=== PATIENT | female | born 1960 | race Caucasian/White ===

== ENCOUNTER 2017-12-29 09:14 | Day surgery (SDC) | payer MEDICARE ==
[2017-12-28 15:13] VITALS: BMI 30.4
[2017-12-29 12:09] VITALS: TEMP 98.4
[2017-12-29 12:11] VITALS: BP 95/43
--- NOTE | 2017-12-29 13:06 | RAD ---
LUMBAR SPINE MYELOGRAM INDICATIONS: Lumbar pain. Prior lumbar spine surgery. Lumbar radiculopathy. EXPOSURE DATA: 0.3 minutes intermittent fluoroscopy. 33 mGy per m2. PROCEDURE: After informed consent had been obtained, the patient was escorted to the interventional suite and pl aced on the procedural table. Body Component Engineer imaging was performed. The patient was placed into a prone posi tion. Skin on the low back was then prepped and draped in the standard sterile fashion and topical a nd regional soft tissue anesthesia was achieved with 1% lidocaine and sodium bicarbonate. Left L3-L 4 interlaminar approach was selected, and a 22 gauge needle was uneventfully advanced into the thecal sac with clear color CSF. Subsequently, 9 cc Isovue M-200 was instilled into the thecal sac under r eal time fluoroscopy. Appropriate opacification of thecal sac demonstrated with imaging stored for c onfirmation. The needle was then removed from the patient. The patient tolerated the procedure well and was then transferred to CT to undergo subsequent myelogram. Reference separate report for full details. IMPRESSION: Technically successful lumbar myelogram as detailed above. POS: [facility]
[2017-12-29] MEDS ORDERED: Iopamidol-M 200 41% 20 ML VIAL ONE (14:57)
--- NOTE | 2017-12-30 07:51 | CT ---
CT LUMBAR SPINE WITH CONTRAST: CT LUMBAR MYELOGRAM: CLINICAL HISTORY: Lumbar pain. Lumbar radiculopathy. Prior lumbar spine surgery. COMPARISON: 03/01/2013 FINDINGS: Multilevel posterior metallic fusion is present, spanning the L3 through the S1 segments, with bilate ral pedicle screws at each level, conjoined by bilateral vertical interconnecting rods. Intervertebr al disk space prostheses are present at L3-L4, L4-L5, and L5-S1. Prominent endplate degenerative scl erosis involves the L2 and L3 segments. No compression fracture. There is mild kyphosis centered at L2-L3. L5-S1: Prominent bilateral degenerative facet hypertrophy is present. There is osseous compromise o f the right subarticular zone with crowding of the traversing right S1 nerve root and moderate right neural foraminal stenosis. There is mild narrowing of the left neural foramen. L4-L5: Mild narrowing of the central canal on the basis of a broad-based osteophyte ridge. There is bilateral degenerative facet hypertrophy with mild bilateral neural foraminal narrowing. L3-L4: Broad-based osteophyte, along with bilateral facet hypertrophy and redundancy of ligamentum f lavum, more notable on the left present. There is evidence of a left hemilaminectomy with prominent right degenerative facet hypertrophy. Mild central canal narrowing is present, more notable on the l eft. There is mild left neural foraminal narrowing. No high grade right foraminal stenosis. L2-L3: There is moderate central canal stenosis on the basis of broad-based disk osteophyte, more pr onounced to the right. There is moderate narrowing of the right subarticular zone with crowding of t he traversing right L3 nerve root. Mild to moderate bilateral neural foraminal narrowing is present. L1-L2: There is moderate central canal stenosis due to broad-based disk osteophyte. Mild to moderat e bilateral neural foraminal stenosis is present. There is mild bilateral degenerative facet hypertr ophy. There is a mild dextroscoliosis centered at the L2-L3 level. Incidental note of prominent distention of the urinary bladder, incompletely visualized. Correlate c linically. There is vascular calcification. Nonspecific retrocrural lymph nodes are incompletely as sessed. IMPRESSION: Multilevel degenerative change of the lumbar spine, as outlined above. There is multilevel posterior metallic fusion without evidence of acute hardware complication. POS: [facility]
== END 2017-12-29 12:35 | disposition home or self-care (01) ==
LOC: RAD 09:14
PROVIDERS: ATTEND Family Medicine
PROC: B02BY0Z Computerized Tomography (CT Scan) of Spinal Cord using Other Contrast, Unenhanced and Enhanced (ICD-10-PCS; principal; 2017-12-29)
DX: M47.26 Other spondylosis with radiculopathy, lumbar region (principal); M48.061 Spinal stenosis, lumbar region without neurogenic claudication; G89.29 Other chronic pain; E11.9 Type 2 diabetes mellitus without complications; F17.200 Nicotine dependence, unspecified, uncomplicated; F31.9 Bipolar disorder, unspecified; Z98.1 Arthrodesis status
CPT/HCPCS: 62304; 72132

== ENCOUNTER 2018-12-13 06:56 | Day surgery (SDC) | payer MEDICARE ==
[2018-12-10 13:24] VITALS: BMI 30.4
[2018-12-13 07:51] VITALS: BP 95/59; TEMP 97.6
--- NOTE | 2018-12-13 11:49 | CT ---
CT THORACIC SPINE WITH CONTRAST: (CT lumbar myelogram) HISTORY: 58-year-old female with thoracic spine pain. FINDINGS: Most of the contrast material in the spinal canal is epidural. There is intrathecal contrast material within the spinal canal at the lower levels of the thoracic spine. The contrast material outlining the epidural space in the mid and upper levels are adequate to evaluate the caliber of the spinal can al, and to evaluate for disc herniations. There is ACDF hardware in the cervical spine down to the C7 level. The thoracic vertebral body heights are maintained. There are small and small-moderate size anterior endplate marginal osteophytes protruding into the prevertebral space throughout the mid and lower mid levels. No high-grade facet DJD. No significant central spinal canal stenosis. At T9-T1 0 and especially T10-11, there is moderate bilateral neural foraminal stenosis. No significant neural foraminal stenosis at other levels. No moderate sized or large disc herniation. Perivertebral spaces are unremarkable. Lower thoracic spinal cord is normal in caliber. Conus medullaris terminates at L2. IMPRESSION: 1. Mild thoracic spondylosis with multilevel mild-moderate degenerative disc changes. 2. Status post anterior cervical discectomy and fusion down to the C7 level. 3. Bilateral moderate neural foraminal stenosis at T9-T10 and T10/11. 4. No significant central spinal canal stenosis. 5. Otherwise negative..
[2018-12-13] MEDS ORDERED: Iopamidol-M 300 61% 15 ML VIAL ONE (12:13)
--- NOTE | 2018-12-13 14:25 | RAD ---
Myelogram lumbar and thoracic: DATE: 12/13/2018 HISTORY: 58-year-old female with bilateral lumbar radiculopathy and thoracic spine pain. TECHNIQUE: Signed informed consent obtained. Mixer Operator Vacuum Pan Salt radiographs of thoracic spine and lumbar spine obtained. Martine ent placed prone on fluoroscopy table. Skin of lower back prepared and draped in usual sterile fashion. 25-gauge needle used to apply buffered lidocaine. 22-gauge spinal needle advanced right para median approach through the laminectomy defect at L5-S1. Clear return of CSF. Injection of 10 mL of Isovue-M 300 under brief, intermittent fluoroscopy. Needle removed. The fluoroscopy table was tilted Trendelenburg allowing contrast to flow into the thoracic spine. Patient tolerated the procedure well. No complications. Patient was taken to CT. IMPRESSION: Technically successful thoracic and lumbar myelogram. See separate reports of the CT myelograms.
--- NOTE | 2018-12-13 14:43 | CT ---
CT LUMBAR SPINE WITH CONTRAST: (CT lumbar myelogram) DATE: 12/13/2018 HISTORY: 58-year-old female with bilateral lumbar radiculopathy. COMPARISON: 12/29/2017. FINDINGS: There are 5 lumbar-type vertebrae. Vertebral body heights are maintained. Again noted are the bilater al pedicle screws at L3, L4, L5, and S1, with vertical interlocking rods. No evidence of loosening of hardware. Bilateral posterior element on delay bone graft chip fusion. Incomplete ankylosis of the bone grafts. There is at least partial ankylosis of the facet joints, bilaterally at L4-5 and L5-S1, and on the right at L3-4. Left L3 inferior articular facet is surgically absent. Tiny metallic markers for interbody bone grafts at L3-4, L4-5, and L5-S1. No ankylosing osseous bridges between the endplates. Mild right-lateral curvature with apex at approximately T12-L1. Conus medullaris termi nates at L2. T11-12: Normal T12-L1: Essentially normal. L1-2: Again noted is the prominent diffuse disc bulge and moderate ligamentum flavum thickening, caus ing moderate thecal sac stenosis. This is unchanged. Moderate left neural foraminal stenosis, and mild to moderate right neural foraminal stenosis. Unchanged. L2-3: Prominent sclerosis. Severe disc space narrowing. Endplate irregularity. Minimal anterolisthesi s of L2 on L3 by approximately 2 mm. Mild right chronic grade 1 right lateral subluxation of L2 on L3. Asymmetrically greater degree of disc space narrowing on the right side than left. Severe right f acet DJD. Moderate to severe left facet DJD. Mild central spinal canal stenosis. Moderate bilateral neural foraminal stenosis. The left neural foraminal stenosis is mostly due to chronic broad-based le ft lateral-far lateral disc herniation. Unchanged. L3-4: Left hemilaminectomy defect. Left inferior L3 facetectomy. No central stenosis. Mild right neur al foraminal stenosis. No bony neural foraminal stenosis on the left. Soft tissue density material partially fills the left neural foramen. Difficult to distinguish postsurgical scar tissue from recur rent or residual disc herniation. Severe degenerative right facet bony hypertrophy. No interval change. L4-5: Generous caliber of spinal canal and thecal sac. No significant neural foraminal stenosis. L5-S1: Generous caliber of spinal canal and thecal sac. Moderate right neural foraminal stenosis. Mil d left neural foraminal stenosis. No significant change. IMPRESSION: 1. Lumbar spondylosis. 2. Status post posterior lumbar interbody fusion including pedicle screws, at L3-4-5-S1. 3. Severe degenerative disc disease at the level directly superior to the fusion, namely L2-3. 4. Moderate central spinal canal stenosis at L1-2 due to large diffuse disc bulge. 5. No significant central spinal canal stenosis at any other level. 6. Multilevel neural foraminal stenosis, mild and moderate. 7. No significant interval change since 12/29/2017.
== END 2018-12-13 10:05 | disposition home or self-care (01) ==
LOC: RAD 06:56
PROVIDERS: ATTEND Neurological Surgery
PROC: B01B1ZZ Fluoroscopy of Spinal Cord using Low Osmolar Contrast (ICD-10-PCS; principal; 2018-12-13)
DX: M47.26 Other spondylosis with radiculopathy, lumbar region (principal); M47.24 Other spondylosis with radiculopathy, thoracic region; M48.04 Spinal stenosis, thoracic region; M48.061 Spinal stenosis, lumbar region without neurogenic claudication; M48.07 Spinal stenosis, lumbosacral region; M51.14 Intervertebral disc disorders with radiculopathy, thoracic region; M51.16 Intervertebral disc disorders with radiculopathy, lumbar region; E11.9 Type 2 diabetes mellitus without complications; F17.200 Nicotine dependence, unspecified, uncomplicated; F14.10 Cocaine abuse, uncomplicated; J44.9 Chronic obstructive pulmonary disease, unspecified; F31.9 Bipolar disorder, unspecified; F41.9 Anxiety disorder, unspecified; Z98.1 Arthrodesis status; Z79.84 Long term (current) use of oral hypoglycemic drugs; Z79.899 Other long term (current) drug therapy
CPT/HCPCS: 62305; 72129; 72132; Q9967

== ENCOUNTER 2019-01-17 06:03 | Inpatient (IN) | payer MEDICARE ==
[2019-01-17] MEDS ORDERED: ceFAZolin Sodium (SDC) 2 GM/100 ML BAG ONE (06:21)
[2019-01-17] MEDS ORDERED: Sodium Chloride 0.9% 10 ML ONE (06:30)
[2019-01-17 06:40] LABS: #Basophils 0.1 thou/uL (0.0-0.2); #Eosinphils 0.1 thou/uL (0.0-0.7); #Lymphocytes 2.5 thou/uL (1.20-3.40); #Monocytes 0.7 thou/uL (0.11-0.59); #Neutrophils 6.9 thou/uL (1.40-6.50); %Basophils 0.6 % (0.0-1.0); %Lymphocytes 24.4 % (21.0-51.0); %Monocytes 6.8 % (0.0-10.0); %Neutrophils 67.2 % (42.0-75.0); Hemoglobin 16.6 g/dL (12.0-16.0); Mean Corpuscular HGB CONC 33.6 g/dL (32.0-36.0); Mean Corpuscular Hemoglobin 29.8 pg (27.0-31.0); Mean Corpuscular Volume 88.8 fL (78.0-98.0); Mean Platelet Volume 8.1 fL (7.4-10.4); Platelet Count 201 thou/uL (130-400); RBC Distribution Width 12.5 % (11.5-14.5); Red Blood Cell (RBC) Count 5.57 mill/uL (4.20-5.40); White Blood Cell (WBC) Count 10.2 thou/uL (4.8-10.8)
[2019-01-17] MEDS ORDERED: Fentanyl 100 MCG/2 ML VIAL ONE ×4 (06:48→09:57)
[2019-01-17 06:56] LABS: Anion Gap 13 mmol/L (10-20); BUN (Urea Nitrogen) 11 mg/dL (9.8-20.1); Calc. Creatinine Clearance 97 mL/min (70-130); Calcium 9.7 mg/dL (7.8-10.44); Carbon Dioxide 27 mmol/L (22-29); Chloride 101 mmol/L (98-107); Estimated GFR-MDRD 69; Glucose 281 mg/dL (70-105); Potassium 4.7 mmol/L (3.5-5.1); Sodium 136 mmol/L (136-145)
[2019-01-17] MEDS ORDERED: Midazolam HCl 2 mg/2 ml Vial ONE (07:14)
[2019-01-17] MEDS ORDERED: HYDROmorphone 2 MG/ML VIAL ONE (09:20)
[2019-01-17] MEDS ORDERED: Sodium Chloride 0.9% 20 ML ONE (11:13)
[2019-01-17] MEDS ORDERED: Morphine 4 MG/ML VIAL ONE (11:13)
[2019-01-17] MEDS ORDERED: diphenhydrAMINE 25 MG CAP PO PRN (11:19)
[2019-01-17] MEDS ORDERED: Promethazine 25 MG TAB PO PRN (11:19)
[2019-01-17] MEDS ORDERED: Ondansetron PF 4 MG/2 ML Vial IM PRN (11:19)
[2019-01-17] MEDS ORDERED: tiZANidine HCl 4 MG TAB PO PRN (11:19)
[2019-01-17] MEDS ORDERED: Promethazine HCl 25 MG/ML VIAL IM PRN (11:19)
[2019-01-17] MEDS ORDERED: HYDROcodone/Acetaminophen 10/325 mg Tablet PO PRN ×2 (11:19→11:26)
[2019-01-17] MEDS ORDERED: Milk Of Magnesia 30 ML UDCUP PO PRN (11:19)
[2019-01-17] MEDS ORDERED: diphenhydrAMINE 50 MG/ML VIAL IVP PRN (11:19)
[2019-01-17] MEDS ORDERED: Mag-Al 1200 mg/1200 mg/30 ML UDCUP PO PRN (11:19)
[2019-01-17] MEDS ORDERED: traMADol HCl 50 MG TAB PO PRN ×2 (11:19)
[2019-01-17] MEDS ORDERED: Promethazine HCl 12.5 MG SUPP PR PRN (11:19)
--- NOTE | 2019-01-17 11:19 | OP ---
DATE OF PROCEDURE: 01/17/2019 PATTERN DEVELOPER: Ar Beltran PA-C PROCEDURES PERFORMED: Exploration of spinal fusion L3 to S1, removal of hardware L3 to S1, L2-L3 laminectomy, L2-L3 posterolateral arthrodesis, pedicle screw instrumentation, L2-L3 demineralized bone matrix and local morselized autograft. DESCRIPTION OF PROCEDURE: The patient was brought to the operating room and intubated. She was rolled in a prone position on gel-filled chest rolls. The previous incision was reopened, extended at L2 bilaterally. We completely exposed the prior hardware and it did seem to be solidly fused. The inferior screws heads were broken off as anticipated. The prior nuts and rods were removed as well as the screw heads at S1, using the drill bit for modest L2-L3 decompression. We next placed pedicle screws at L2 bilaterally using lateral fluoroscopic guidance. The sudha was secured between L2 and L3, connected by nuts, which were final tightened. The wound was then extensively irrigated and MAC hemostasis was secured. A combination of demineralized bone matrix and local morselized autograft was laid over the lamina and posterolateral surfaces at L2-L3. Vancomycin powder was applied and the wound was closed in anatomic layers over drain. Job ID: [id number]
[2019-01-17] MEDS ORDERED: fentaNYL 50 mcg/hour Patch TD PRN (11:25)
[2019-01-17] MEDS ORDERED: Gabapentin 400 MG CAP PO PRN (11:26)
[2019-01-17] MEDS: Sodium Chloride 0.9% 1,000 ML IV SCH (11:34)
[2019-01-17 11:43] VITALS: BMI 29.8
[2019-01-17] MEDS: CEFAZOLIN 2 GM, IV Admixture Fee-Chemo 1 UNITS in Sodium Chloride 0.9% 100 ML IVPB SCH ×2 (14:43→22:12)
[2019-01-17] MEDS: Morphine 4 MG/ML VIAL SLOW IVP PRN ×5 (14:57→23:29)
[2019-01-17] MEDS ORDERED: Aripiprazole 10 MG TAB PO SCH (21:00)
[2019-01-17] MEDS ORDERED: DULoxetine 60 MG CAP PO SCH (21:00)
[2019-01-17] MEDS ORDERED: Citalopram 20 MG TAB PO SCH (21:00)
[2019-01-18] MEDS: Sodium Chloride 0.9% 1,000 ML IV SCH (02:57)
[2019-01-18] MEDS: Morphine 4 MG/ML VIAL SLOW IVP PRN ×2 (02:58→04:42)
--- NOTE | 2019-01-18 06:45 | PRG ---
DATE OF SERVICE: 01/18/2019 SUBJECTIVE: The patient is a 58-year-old female, postoperative day #1, status post removal of hardware and extension of her lumbar fusion L2-L3. Following the surgery, she was transitioned to the floor. The patient has had postop pain issues and required several doses of morphine overnight. She had approximately 110 out from her LENORA. She has been ambulating easily up and down the halls however. OBJECTIVE: On exam, this morning, the patient is awake and alert, in no acute distress. She has free active range of motion of all extremities. No focal motor weakness. No incisional drainage issues. There is a small amount of dark red blood in the LENORA bulb. PLAN: Will plan to remove her LENORA drain and dismiss her to home later today. Job ID: [id number] [facility]
[2019-01-18] MEDS: HYDROcodone/Acetaminophen 10/325 mg Tablet PO PRN ×2 (07:36→12:52)
[2019-01-18 08:02] VITALS: TEMP 98.3
[2019-01-18] MEDS ORDERED: Naloxone HCl 0.4 mg/ml Vial ONE (09:04)
[2019-01-18] MEDS ORDERED: Sodium Chloride 0.9% 10 ML ONE (09:19)
[2019-01-18 11:18] VITALS: BP 90/45
--- NOTE | 2019-01-18 22:55 | EKG ---
Test Reason : PREOP Blood Pressure : / mmHG Vent. Rate : 075 BPM Atrial Rate : 075 BPM P-R Int : 176 ms QRS Dur : 084 ms QT Int : 386 ms P-R-T Axes : 054 030 034 degrees QTc Int : 431 ms Normal sinus rhythm Normal ECG When compared with ECG of 05-DEC-2013 14:47, T wave amplitude has increased in Anterior leads Confirmed by Aditya ORELLANA ([id number]) on 01/18/2019 10:54:47 PM Referred By: RUSSELL Confirmed By:Aditya ORELLANA
[2019-01-22] MEDS ORDERED: [UNRECOGNIZED DRUG - OTHER] SC SCH (11:30)
[2019-01-22] MEDS ORDERED: SEMAGLUTIDE SC SCH (11:30)
== END 2019-01-18 14:45 | disposition home or self-care (01) | DRG 460 ==
LOC: SURG A 06:03 → 3SE 10:44
PROVIDERS: ADMIT Neurological Surgery; ATTEND Neurological Surgery
PROC: 0SG0071 Fusion of Lumbar Vertebral Joint with Autologous Tissue Substitute, Posterior Approach, Posterior Column, Open Approach (ICD-10-PCS; principal; 2019-01-17)
PROC: 0SP40JZ Removal of Synthetic Substitute from Lumbosacral Disc, Open Approach (ICD-10-PCS; 2019-01-17)
DX: M54.16 Radiculopathy, lumbar region (principal); E11.9 Type 2 diabetes mellitus without complications; F41.9 Anxiety disorder, unspecified; F17.210 Nicotine dependence, cigarettes, uncomplicated; Z90.710 Acquired absence of both cervix and uterus; Z90.49 Acquired absence of other specified parts of digestive tract
CPT/HCPCS: 36415; 76000; 80048; 85025; 93005; 93010; C1713; C1768; J0131; J0690; J1170; J2250; J2270; J2310; J3010; J3370; J3490

== ENCOUNTER 2019-02-02 11:01 | Outpatient (CLI) | payer MEDICARE ==
--- NOTE | 2019-02-02 13:08 | RAD ---
LUMBAR SPINE SERIES 2 VIEWS: HISTORY: Followup back surgery. COMPARISON: A 10/05/2007 study. FINDINGS: Postoperative changes of the spine are noted. On the previous examination, bilateral pedicle screws and vertical connecting rods were seen at the L4, L5, and S1 levels. Vertical connecting rods have b een removed and the proximal ends of the screws at S1 are no longer present. Markers of the disk imp lants remain within the confines of the disk level. Bilateral pedicle screws and vertical connecting rods have been placed at the L2-3 level. There is marked disk narrowing at this level. IMPRESSION: Postoperative changes of the spine as described above. POS: [facility]
== END 2019-02-02 11:02 | disposition home or self-care (01) ==
LOC: TBSIIMAG 11:01
PROVIDERS: ATTEND Neurological Surgery
DX: M54.16 Radiculopathy, lumbar region (principal); Z98.890 Other specified postprocedural states
CPT/HCPCS: 72100

== ENCOUNTER 2022-06-30 11:20 | Outpatient (CLI) | payer MEDICARE ==
[2022-06-27 11:31] VITALS: BMI 24.2
[2022-06-30] MEDS ORDERED: fentaNYL PF 100 MCG/2 ML SYRINGE ONE (11:59)
[2022-06-30] MEDS ORDERED: Lidocaine 1% PF 5 ML VIAL ONE (13:30)
[2022-06-30] MEDS ORDERED: Ondansetron PF 4 MG/2 ML Vial ONE (13:30)
[2022-06-30] MEDS ORDERED: PROPOFOL 200 MG/20 ML VIAL ONE (13:30)
== END 2022-06-30 15:54 | disposition home or self-care (01) ==
LOC: MRI 11:20
PROVIDERS: ATTEND Obstetrics & Gynecology
DX: S06.5X0A Traumatic subdural hemorrhage without loss of consciousness, initial encounter (principal); M54.2 Cervicalgia; M47.812 Spondylosis without myelopathy or radiculopathy, cervical region; S42.002D Fracture of unspecified part of left clavicle, subsequent encounter for fracture with routine healing; S22.42XD Multiple fractures of ribs, left side, subsequent encounter for fracture with routine healing; G95.20 Unspecified cord compression; M50.322 Other cervical disc degeneration at C5-C6 level; Z98.1 Arthrodesis status
CPT/HCPCS: 70551; 72040; 72141; J2405; J2704

== ENCOUNTER 2025-04-08 15:27 | Emergency (ER) | payer MEDICARE | END 2025-04-08 16:19 | disposition home or self-care (01) | LOC: ERS 15:27 | DX: R60.0 Localized edema (principal); E11.40 Type 2 diabetes mellitus with diabetic neuropathy, unspecified; F17.210 Nicotine dependence, cigarettes, uncomplicated | CPT/HCPCS: 99282 ==